=== PATIENT | male | born 1945 ===

== ENCOUNTER 2019-02-26 22:52 | Outpatient (CLI) | payer MEDICARE, OTHER | END 2019-02-26 22:53 | disposition short-term general hospital (02) | LOC: EMS 22:52 | PROVIDERS: ATTEND Surgery | DX: R47.9 Unspecified speech disturbances (principal); R53.1 Weakness; R29.810 Facial weakness | CPT/HCPCS: A0425; A0427 ==

== ENCOUNTER 2023-10-27 08:00 | Outpatient (CLI) | payer MEDICARE, OTHER | END 2023-10-27 23:59 | disposition left against medical advice (07) | LOC: EMS 08:00 | DX: R53.1 Weakness (principal) ==